=== PATIENT | female | born 1975 | race Caucasian/White ===

== ENCOUNTER 2022-10-16 09:52 | Observation (INO) | payer OTHER, SELFPAY ==
[2022-10-16 09:54] VITALS: BP 157/89; PULSE 73; RESP 17; TEMP 36.3; O2SAT 100; BMI 37.5
--- NOTE | 2022-10-16 10:11 | CT_ITS ---
STUDY: CTA HEAD AND NECK WITH CONTRAST REASON FOR EXAM: Female, 46 years old. Neuro deficit, acute, stroke suspected RADIATION DOSAGE (If Supplied By Facility): CTDIvol = ( 21.29 ) mGy, DLP = ( 649.10 ) mGycm TECHNIQUE: CT angiography was performed with a multi-detector CT scanner. Data acquisition was obtained from the skull base through the vertex following intravenous administration of IV 100mL Isovue-370. MIP images were reconstructed from the axial data set. Post-processing of the angiographic images was performed, with multiplanar reformation and 3D reconstruction. Individualized dose optimization techniques were used for this CT. COMPARISON: No relevant priors. FINDINGS: Normal bilateral petrous carotid arteries. Normal right cavernous carotid artery with a normal supraclinoid bifurcation. Normal left cavernous carotid artery with a normal supraclinoid bifurcation. Normal right A1 segment of the anterior cerebral artery. Normal left A1 segment of the anterior cerebral artery. Normal intact anterior communicating artery (ACOM). Normal bilateral A2 segments of the anterior cerebral arteries. Normal right M1 and M2 segments of the middle cerebral arteries, with a normal M1 bifurcation. Normal left M1 and M2 segments of the middle cerebral arteries, with a normal M1 bifurcation. There is an early anterior temporal branch of the left middle cerebral artery in the left mid M1 segment forming a pseudo bifurcation. This is a developmental variation of normal. There is no thromboembolic occlusion of the left anterior temporal branch of the left middle cerebral artery. origin of the right posterior cerebral artery off the right internal carotid artery rather than a widely patent right posterior communicating artery (PCOM). This explains the development absent right P1 segment. No visible left posterior communicating artery (PCOM). Normal bilateral vertebral arteries. Normal basilar artery with a normal basilar bifurcation. The visualized bilateral superior cerebellar (SCA) arteries are normal. Developmentally absent right P1 segment. Normal left P1 segment. Normal bilateral P2 and visualized P3 segments of the posterior cerebral arteries. There is no demonstrated aneurysm of the [place]. There is no demonstrated abnormality of the visualized brain. AORTIC ARCH: Normal visualized aortic arch. Normal origins of the brachiocephalic, left common carotid, and left subclavian arteries. RIGHT CAROTID ARTERIES: Normal right common carotid artery (CCA). Normal right carotid bulb. Normal origin of the right internal carotid (ICA) artery without a hemodynamically significant stenosis. Normal visualized cervical portion of the right internal carotid artery. Normal origin of the right external carotid artery (ECA). LEFT CAROTID ARTERIES: Normal left common carotid artery (CCA). Normal left carotid bulb. Normal origin of the left internal carotid (ICA) artery without a hemodynamically significant stenosis. Normal visualized cervical portion of the left internal carotid artery. Normal origin of the left external carotid artery (ECA). VERTEBRAL ARTERIES: Normal bilateral vertebral arteries. CT/STROKE CTA Head AND Neck W/Con IMPRESSION: Normal CTA Head and neck with contrast. N.B. : The above Results were Read Back by Gino Curry MD to Kwasi Machuca MD, and understanding confirmed on 10/16/2022 11:50:50 (ET). Electronically Signed: iGno Curry MD at 11:57 EST ,
--- NOTE | 2022-10-16 10:11 | EKG12_ITS ---
Test Reason : NUMBNESS/TINGLING Blood Pressure : / mmHG Vent. Rate : 070 BPM Atrial Rate : 070 BPM P-R Int : 162 ms QRS Dur : 080 ms QT Int : 382 ms P-R-T Axes : 011 -14 005 degrees QTc Int : 412 ms Normal sinus rhythm Inferior infarct , age undetermined , cannot be excluded Abnormal ECG Confirmed by LIZ CHAMBERS, GLENN ([id number]), copy editor KAVITHA GREEN ([id number]) on 10/18/2022 1:11:10 PM Referred By: Confirmed By:GLENN HILL MD
--- NOTE | 2022-10-16 10:11 | CT_ITS ---
EXAM: CT HEAD WITHOUT INTRAVENOUS CONTRAST CLINICAL INDICATION: Neuro deficit, acute, stroke suspected TECHNIQUE: Multiple axial images were obtained of the head without intravenous contrast. This CT exam was performed using one or more of the following dose reduction techniques: automated exposure control, adjustment of the mA and/or kV according to patient size, and/or use of iterative reconstruction technique. This report was created using [employer] report generation technology. COMPARISON: None. FINDINGS: BRAIN AND EXTRA-AXIAL SPACES: Unremarkable. No intra- or extra-axial hemorrhage. No evidence of acute infarct. No intracranial mass or mass effect. There is preservation of the mauricio/white matter interface. Posterior fossa structures are unremarkable. Ventricles are appropriate for age. No hydrocephalus. Basal cisterns are patent. BONES/JOINTS: Unremarkable. No discrete lytic or blastic abnormalities. SINUSES: Unremarkable as visualized. Clear. MASTOID AIR CELLS: Unremarkable. Clear. ORBITS: Visualized globes, extraocular muscles, optic nerves and retrobulbar fat appear unremarkable. CT/STROKE Brain/Head without Cont IMPRESSION: 1. Negative head/brain CT without intravenous contrast at this time. 2. Total ASPECTS score: 10/10. N.B. : The above Results were Read Back by Gino Curry MD to Kwasi Machuca MD, and understanding confirmed on 10/16/2022 11:52:48 (ET). Electronically Signed: Gino Curry MD at 11:43 EST ,
--- NOTE | 2022-10-16 10:12 | EX.ED.DYSGE1 ---
HPI History of Present Illness Chief Complaint: Numb/Ting Narrative Narrative: 46-year-old female presenting with right-sided face numbness and tingling. Patient states she noticed this on [place], 2 days ago. She feels like it is progressively getting worse and is down to her neck. She has occasional numbness and tingling in her right arm. She denies weakness. Denies dizziness or vertigo. Denies speech or vision changes. Denies chest pain or shortness of breath. Prior similar symptoms: No Recent Illness/Hospitalization: No PFSH PFS Medical History (Updated 10/16/22 @ 12:[address] Brigette Villalpando MD) GERD (gastroesophageal reflux disease) Home Medications NK 10/16/22 [History Last Taken Unknown] Allergy/AdvReac Type Severity Reaction Status Date / Time amoxicillin Allergy Hives Verified 10/16/22 09:53 Social History Smoking Status: Never smoker ROS ROS ED Constitutional Constitutional ED: Denies fever(s) Eyes Eyes: Denies change in vision ENT ENT ED: Denies rhinorrhea or sore throat Cardiovascular Cardiovascular: Denies chest pain or palpitations Respiratory/Chest Respiratory/Chest: Denies cough or dyspnea Gastrointestinal Gastrointestinal: Denies abdominal pain, diarrhea, nausea or vomiting Genitourinary Genitourinary ED: Denies dysuria Musculoskeletal Musculoskeletal: Denies myalgias Integumentary Denies rash Neurologic Neurologic: Reports paresthesias; Denies headache(s) or weakness Psychiatric Psychiatric: Denies suicidal thoughts EXAM Physical Exam Const Vital Signs: 10/16/22 09:54 10/16/22 11:10 Temperature 97.3 F L Temperature Source Temporal Pulse Rate 73 Respiratory Rate 17 Blood Pressure 157/89 H Blood Pressure Mean 111 Pulse Ox 100 Oxygen Delivery Method Room Air Room Air Positive well nourished and well developed General Appearance ED: well developed HEENT Reports normocephalic and head/scalp atraumatic Eyes PERRL and EOMs intact bilaterally Neck supple General: Negative for tenderness Chest Wall inspection of chest normal Resp normal respiratory effort and clear to auscultation bilaterally Cardio regular rate and regular rhythm GI non-tender and non-distended Palpation: soft; Negative for guarding or rebound tenderness present no CVA tenderness Extremity normal to inspection Neuro oriented x3 Neuro Narrative: decreased sensation right face, NIH 1 Sensorium / Orientation: alert Motor Exam: strength 5/5 throughout Psych mental status grossly normal MDM MDM MDM Narrative Medical decision making narrative: EKG is sinus rhythm rate of 70 with no acute ischemic changes. Chest x-ray read by myself and radiology shows no acute process. CBC, chemistries are unremarkable. INR 1.0. Troponin is negative. CT head, CTA head and neck were unremarkable. Discussed with hospitalist for observation. Lab Data Attestation: I reviewed the patient's lab results. Labs: Laboratory Results - last 24 hr 10/16/22 10/16/22 10/16/22 10:40 10:40 10:40 WBC 4.0 L RBC 3.98 L Hgb 11.8 L Hct 35.6 L MCV 89.4 MCH 29.6 MCHC 33.1 RDW Std Deviation 41.7 RDW Coeff of Liu 12.7 Plt Count 284 MPV 9.8 Immature Gran % (Auto) 0.300 Neut % (Auto) 45.4 L Lymph % (Auto) 37.9 Burnett % (Auto) 13.1 H Eos % (Auto) 2.3 Baso % (Auto) 1.0 Absolute Neuts (auto) 1.8 L Absolute Lymphs (auto) 1.50 Nucleated RBC % 0 PT 13.0 INR 1.0 APTT 27.5 Sodium 139 Potassium 3.5 Chloride 107 Carbon Dioxide 26.0 Anion Gap 6 BUN 12 Creatinine 0.81 Estim Creat Clear Calc 64.09 Est GFR (MDRD) Af Amer 97 Est GFR (MDRD) Non-Af 80 BUN/Creatinine Ratio 14.8 Glucose 116 H Calcium 8.6 Troponin I High Sens < 3 L Radiography Chest X-Ray - ED: 1 View, Read by ED Physician and Read by Radiologist Diagnostic Testing: Clinical Impression(s) from Imaging Studies Head/Neck CTA 10/16/22 10:11 IMPRESSION: Normal CTA Head and neck with contrast. N.B. : The above Results were Read Back by Gino Curry MD to Kwasi Machuca MD, and understanding confirmed on 10/16/2022 11:50:50 (ET). Electronically Signed: Gino Curry MD at 11:57 EST , ADDENDUM: 10/16/22 1204 IMPRESSION: Normal CTA Head and neck with contrast. N.B. : The above Results were Read Back by Gino Curry MD to Kwasi Machuca MD, and understanding confirmed on 10/16/2022 11:50:50 (ET). Electronically Signed: Gino Curry MD at 11:57 EST , Chest X-Ray 10/16/22 10:45 IMPRESSION: Normal chest radiograph. Electronically Signed: Gino Curry MD at 11:18 EST , EKG Initial EKG: Attestation: I personally reviewed and interpreted this EKG as follows: Interpretation: Sinus Rhythm and No Acute Injury Pattern Discharge Plan Triage Chief Complaint: Numb/Ting ED Provider: Brigette Villalpando Dx/Rx/DC Orders Clinical Impression: Facial paresthesia Prescriptions: No Action NK Primary Care Provider: David Butler Referrals: David Butler MD [Primary Care Provider] - Disposition Disposition: Acute Care [facility]
--- NOTE | 2022-10-16 10:16 | NURSING ---
NO OLD EKGS
--- NOTE | 2022-10-16 10:45 | RAD_ITS ---
EXAM: XR CHEST, 1 VIEW CLINICAL INDICATION: Neuro deficit, acute, stroke suspected TECHNIQUE: Frontal view of the chest. This report was created using [employer] report generation technology. COMPARISON: None. FINDINGS: LUNGS AND PLEURAL SPACES: The lungs are clear. No pneumothorax. No effusion. HEART: Unremarkable. Cardiac silhouette not enlarged. MEDIASTINUM: Central airways and mediastinal contour are unremarkable. BONES/JOINTS: Unremarkable. SOFT TISSUES: Unremarkable. RAD/Chest 1 View IMPRESSION: Normal chest radiograph. Electronically Signed: Gino Curry MD at 11:18 EST ,
[2022-10-16 10:54] LABS: Absolute Neutrophil Count 1.8 X10^3/uL (2.0-7.7); Basophil# 0.04 X10^3/uL; Eosinophil# 0.09 X10^3/uL; Eosinophils% 2.3 % (0-5); Hematocrit 35.6 % (37-47); Hemoglobin 11.8 g/dL (12.0-15.0); Lymphocyte % 37.9 % (19-41); Mean Corp Hgb Conc 33.1 g/dL (32-36); Mean Corpuscular Hgb 29.6 pg (27.0-32.0); Mean Corpuscular Volume 89.4 fL (81-99); Mean Platelet Vol. 9.8 fl (6.2-12.0); Monocyte# 0.52 X10^3/uL; Monocyte% 13.1 % (0-10); NRBC Flagged by Analyzer 0 % (0-5); Neutrophil % 45.4 % (47-70); Platelet Count 284 K/mm3 (150-450); RBC Distribution Width CV 12.7 % (11.6-14.6); RBC Distribution Width SD 41.7 fl (35.1-43.9); Red Blood Count 3.98 M/mm3 (4.2-5.4)
[2022-10-16 11:01] LABS: Partial Thromboplast Time 27.5 Seconds (24.1-36.2)
[2022-10-16 11:03] LABS: Anion Gap 6 (5-15); BUN 12 mg/dL (7-18); BUN/Creat Ratio 14.8 RATIO (10-20); Calcium,Total 8.6 mg/dL (8.5-10.1); Chloride 107 mmol/L (98-107); Creatinine, Serum 0.81 mg/dL (0.55-1.02); EST Glomerular Filtration Rate 80 mL/min (>60); Est Glom Filt Rate - Afr Amer 97 mL/min (>60); Estimated Creatinine Clearance 64.09 ml/min; Glucose 116 mg/dL (74-106); Potassium 3.5 mmol/L (3.5-5.1); Sodium Level 139 mmol/L (136-145); Troponin-I HS < 3 pg/mL (3.0-54.0)
--- NOTE | 2022-10-16 12:08 | NURSING ---
DR KYREE DON
[2022-10-16 12:18] VITALS: BP 142/83; PULSE 63; RESP 20; TEMP 36.7; O2SAT 100
[2022-10-16 13:00] VITALS: BP 137/74; PULSE 65; RESP 18; TEMP 36.8; O2SAT 99
[2022-10-16 13:01] VITALS: BMI 36.1
--- NOTE | 2022-10-16 14:16 | EX.EMERGENCY ---
EMERGENCY DOCUMENTATION INITIATED: Date: 10/12/22 Time: 0900 Emergency Documentation started at 1300 10/16/22
--- NOTE | 2022-10-16 15:05 | HP.PCM.HOS_ITS ---
[facility] - General General Date of Admission: 10/16/22 Date of Service: 10/16/22 Chief Complaint: Tingling and numbness of the right facial and scalp area extending into the right neck area [facility] Narrative RYAN GARCÍA, is a 46 F who presents to the emergency room with complaints of a tingling sensation along with numbness of the skin over the right facial area, right temporal occipital scalp area, and radiation into the right lateral neck area. The symptoms over the right facial area and right temporal occipital area started 2 days ago, the symptoms involving her right lateral neck area started yesterday. She denies any right-sided weakness, she denies any right- sided numbness or tingling, she denies any visual or speech disturbances. Patient has no chronic medical problems. Work-up in the emergency room included a CT of the head and neck and a CT of the brain which was unremarkable and showed no acute pathology. Chest x-ray was unremarkable, white blood cell count was low at 4, hemoglobin was 11.8, and patient's chemistry panel was unremarkable. Patient's EKG showed normal sinus rhythm at 70 with no acute ischemic changes. Patient's NIH score was 1. According to the emergency room physician, patient appeared concerned because her sister has a history of MS. Patient will be placed in observation status on [facility], if her symptoms progress and NIH scores will be monitored, I will order a MRI of the brain with and without contrast tomorrow, I do not feel the patient has had an acute CVA. [facility] Medical History (Updated 10/16/22 @ 13:14 by Rachel Benitez) Former smoker GERD (gastroesophageal reflux disease) Vision loss of left eye Vision loss of right eye Home Medications NK 10/16/22 [History Last Taken Unknown] Allergy/AdvReac Type Severity Reaction Status Date / Time amoxicillin Allergy Hives Verified 10/16/22 09:53 Surgical History (Updated 10/16/22 @ 13:14 by Rachel Benitez) History of cholecystectomy Social History Smoking Status: Former smoker ROS Constitutional Constitutional: Denies anorexia, change in weight, chills, fatigue, fever(s), night sweats or weakness Eyes Eyes: Denies blurry vision, change in eye color, change in vision, discharge from eye(s) or eye pain Cardiovascular Cardiovascular: Denies chest pain, claudication, dyspnea on exertion, edema, lightheadedness or palpitations Respiratory/Chest Respiratory/Chest: Denies cough, hemoptysis, shortness of breath at rest or shortness of breath with exertion Gastrointestinal Gastrointestinal: Denies abdominal pain, constipation, diarrhea, hematemesis, hematochezia, melena, nausea or vomiting Genitourinary Genitourinary: Denies dysuria, hematuria, urinary frequency, urinary hesitancy, urinary incontinence or urinary urgency Musculoskeletal Musculoskeletal: Denies back pain, joint pain, joint stiffness, joint swelling, myalgias or neck pain Neurologic Neurologic: Reports numbness, paresthesias, tingling and other Details: Patient complains of paresthesias over her right facial area, right occipital/temporal scalp area, and right lateral neck area ; Denies abnormal gait, abnormal speech, dizziness, focal weakness, headache(s), loss of vision, other visual disturbances, seizure-like activity, seizures, syncope or tremor(s) Psychiatric Psychiatric: Denies anxiety, cognitive impairment, depression, irritability, mood swings or suicidal ideation Endocrine Endocrinology: Denies change in body appearance, cold intolerance, excessive sweating, heat intolerance, polydipsia or polyuria Hematologic/Lymphatic Hematologic/Lymphatic: Denies none, anemia, easy bleeding, easy bruising or lymphadenopathy Allergic/Immunologic Allergic/Immunologic: Denies rhinitis, urticaria, eczemia or asthma Vital Signs Vital Signs Vital Signs: 10/16/22 09:54 10/16/22 11:10 10/16/22 12:18 Temperature 97.3 F L Temperature Source Temporal Pulse Rate 73 63 Respiratory Rate 17 20 H Blood Pressure 157/89 H 142/83 H Blood Pressure Mean 111 102 Blood Pressure Source Blood Pressure Position Blood Pressure Location Pulse Ox 100 100 Oxygen Delivery Method Room Air Room Air Room Air 10/16/22 12:18 10/16/22 13:00 Temperature 98.0 F 98.2 F Temperature Source Oral Oral Pulse Rate 63 65 Respiratory Rate 20 H 18 Blood Pressure 142/83 H 137/74 H Blood Pressure Mean 102 95 Blood Pressure Source Monitor Blood Pressure Position Semi-Fowlers Blood Pressure Location Left Arm Pulse Ox 100 99 Oxygen Delivery Method Room Air Room Air Weight Weight: 89.7 kg Body Mass Index (BMI) 36.1 Physical Exam Const alert, oriented x3, no apparent distress, average body habitus and healthy appearing General Appearance: cooperative, well kempt and well developed Orientation / Consciousness: awake, oriented to person, oriented to place and oriented to time HEENT normocephalic, head/scalp atraumatic, hearing grossly normal bilaterally and moist oral mucous membranes Eyes PERRL, EOMs intact bilaterally and conjunctivae normal Neck supple, no JVD, thyroid normal and no carotid bruits General: trachea midline Resp normal respiratory effort, no retractions, no use of accessory muscles and clear to auscultation bilaterally Auscultation: Negative for rales, rhonchi or wheezes Cardio regular rate, regular rhythm, S1 normal heart sound, S2 normal heart sound, no murmurs, no rub and no gallops GI normal to inspection, nondistended, normoactive bowel sounds, soft to palpation, non-tender and non-distended Extremity no clubbing, cyanosis or edema Skin no rashes or lesions noted General Skin Exam: no breakdown Neuro oriented x3, CN's II-XII intact bilaterally, moves all extremities and no focal motor deficits Neuro Narrative: Patient states that she has decreased sensation to light touch over her right facial area, right occipital scalp area, right temporal scalp area, and right lateral neck area as compared with the same areas on the left. Sensorium / Orientation: awake, alert, oriented to person, oriented to place and oriented to time Speech: speech normal Motor Exam: strength 5/5 throughout Psych affect normal Results Lab / Micro Data Result Diagrams: 10/16/22 10:40 10/16/22 10:40 Labs: Laboratory Results - last 24 hr 10/16/22 10:40: WBC 4.0 L, RBC 3.98 L, Hgb 11.8 L, Hct 35.6 L, MCV 89.4, MCH 29.6, MCHC 33.1, RDW Std Deviation 41.7, RDW Coeff of Liu 12.7, Plt Count 284, MPV 9.8, Immature Gran % (Auto) 0.300, Neut % (Auto) 45.4 L, Lymph % (Auto) 37.9, Crockett % (Auto) 13.1 H, Eos % (Auto) 2.3, Baso % (Auto) 1.0, Absolute Neuts (auto) 1.8 L, Absolute Lymphs (auto) 1.50, Nucleated RBC % 0 10/16/22 10:40: PT 13.0, INR 1.0, APTT 27.5 10/16/22 10:40: Sodium 139, Potassium 3.5, Chloride 107, Carbon Dioxide 26.0, Anion Gap 6, BUN 12, Creatinine 0.81, Estim Creat Clear Calc 64.09, Est GFR (MDRD) Af Amer 97, Est GFR (MDRD) Non-Af 80, BUN/Creatinine Ratio 14.8, Glucose 116 H, Calcium 8.6, Troponin I High Sens < 3 L Radiology Impression Head/Neck CTA 10/16/22 10:11 IMPRESSION: Normal CTA Head and neck with contrast. N.B. : The above Results were Read Back by Gino Curry MD to Kwasi Machuca MD, and understanding confirmed on 10/16/2022 11:50:50 (ET). Electronically Signed: Gino Curry MD at 11:57 EST , ADDENDUM: 10/16/22 1204 IMPRESSION: Normal CTA Head and neck with contrast. N.B. : The above Results were Read Back by Gino Curry MD to Kwasi Machuca MD, and understanding confirmed on 10/16/2022 11:50:50 (ET). Electronically Signed: Gino Curry MD at 11:57 EST , Chest X-Ray 10/16/22 10:45 IMPRESSION: Normal chest radiograph. Electronically Signed: Gino Curry MD at 11:18 EST , Assessment & Plan Assessment/Plan (1) Facial paresthesia: PLAN: Plan 1. Right facial/scalp/neck paresthesias-exact etiology unclear at this point, again I do not feel the patient has had an acute cerebrovascular event, patient will be placed in observation status on [facility] 2, patient will be monitored and an MRI of the brain with and without contrast tomorrow will be performed to rule out any pathology. Charges/Coding Visit Charges Inpatient E&M: 17229 Init Hosp L2
[2022-10-16 17:42] VITALS: BP 137/76; PULSE 77; RESP 18; TEMP 37.2; O2SAT 95
[2022-10-16 20:05] VITALS: BP 142/83; PULSE 75; RESP 18; TEMP 36.8; O2SAT 98
[2022-10-16] MEDS: Acetaminophen 325 MG Tablet 650 MG PO (20:17)
[2022-10-17 02:10] VITALS: BP 121/81; PULSE 88; RESP 18; TEMP 36.9; O2SAT 98
[2022-10-17 08:00] VITALS: BP 127/83; PULSE 74; RESP 18; TEMP 36.9; O2SAT 100
--- NOTE | 2022-10-17 09:00 | MRI_ITS ---
HISTORY: arm and facial paresthesias, R/O MS. TECHNIQUE: Multiplanar and multisequence MR images of the brain were obtained before and after the intravenous administration of 18 mL Clariscan. 358 images. COMPARISON: CT prior day. FINDINGS: BRAIN PARENCHYMA: Small focus of increased T2 FLAIR signal at the junction of the right dorsolateral medulla and cervical cord. Slightly increased signal on diffusion-weighted images in the same region without corresponding drop out on ADC map. Mild linear enhancement associated with the lesion. No other enhancing lesion in the brain parenchyma. No acute intracranial hemorrhage identified. CSF SPACES: Cerebral ventricles, cortical sulci, and other extra-axial CSF spaces within normal limits in size for age. No significant midline shift or other mass effect.No extra-axial fluid collection. VASCULAR SYSTEM: Major intracranial flow voids are maintained. PARANASAL SINUSES AND MASTOID AIR CELLS: No significant air fluid levels. ORBITS: Symmetric contents. Symmetric signal in the optic nerves without abnormal enhancement. MRI/Brain W/WO Contrast IMPRESSION: Small zone of increased signal with mild linear enhancement in the right dorsolateral medulla at the cervicomedullary junction, which may represent subacute infarction or small focus of active demyelinating disease. Recommend follow-up to exclude other etiologies. Electronically Signed: Diamond Pavon MD at 11:27 EST ,
--- NOTE | 2022-10-17 09:38 | NURSING ---
Transport came to get pt. Brought down to MRI via at this time.
--- NOTE | 2022-10-17 11:31 | ECHOD_ITS ---
Reason For Study: TIA/CVA Procedure This was a 2D Doppler, Color Flow transthoracic echocardiogram. The study was technically difficult. RESPIRATORY INTERFERENCE. Exam performed portable in patient room. Left Ventricle Normal LV size. Left ventricular systolic function is normal. The estimated ejection fraction is 65 %. No evidence for diastolic dysfunction. No regional wall motion abnormalities noted. Right Ventricle Normal RV size. Normal systolic function. Atria Normal left atrium. Normal right atrium. No doppler evidence for ASD. Bubble contrast study negative for right to left interatrial shunt. Mitral Valve There is no mitral annular calcification. Normal mitral valve. Trivial mitral valve insufficiency. Tricuspid Valve Normal tricuspid valve. Aortic Valve Trisinus/trileaflet aortic valve. Normal aortic valve. Pulmonic Valve The pulmonic valve is not well visualized. Great Vessels Normal sized aortic root. Pericardium/Pleural No pericardial effusion. Medication Performed a rapid injection of agitated mix of 9 cc saline and 1cc air to assess for atrial septal defect. MMode/2D Measurements & Calculations LVIDd: 3.2 cm IVSd: 0.92 cm Ao root diam: 3.3 cm LVIDs: 2.3 cm LVPWd: 0.94 cm RVDd: 3.1 cm FS: 29.2 % LAV(MOD-bp): 34.2 ml LVAd ap4: 24.2 cm2 LVAd ap2: 22.2 cm2 LAV(MOD-bp) Indexed: 18.0 ml/m2 LVLd ap4: 7.7 cm LVLd ap2: 7.7 cm LAV(MOD-sp2): 24.4 ml EDV(MOD-sp4): 63.1 ml EDV(MOD-sp2): 55.6 ml LAV(MOD-sp4): 40.3 ml EDV(sp4-el): 64.7 ml EDV(sp2-el): 54.3 ml LVAs ap4: 12.3 cm2 LVAs ap2: 12.0 cm2 LVLs ap4: 6.4 cm LVLs ap2: 5.8 cm ESV(MOD-sp4): 22.4 ml ESV(MOD-sp2): 22.0 ml ESV(sp4-el): 20.0 ml ESV(sp2-el): 21.1 ml EF(MOD-sp4): 64.6 % EF(MOD-sp2): 60.4 % EF(sp4-el): 69.1 % SV(MOD-sp4): 40.8 ml SV(MOD-sp2): 33.6 ml SV(sp4-el): 44.7 ml LA A4 area: 16.2 cm2 LA dimension(2D): 3.4 cm RA A4 area: 9.7 cm2 Time Measurements MV dec time: 0.25 sec Doppler Measurements & Calculations MV E max dominick: 57.0 cm/sec Lat Peak E' Dominick: 12.0 cm/sec Med Peak E' Dominick: 8.0 cm/sec MV A max dominick: 65.6 cm/sec E/E' lat: 4.8 E/E' med: 7.1 MV E/A: 0.87 Ao V2 max: 144.5 cm/sec LV V1 max: 107.6 cm/sec MV dec slope: 235.0 cm/sec2 Ao max P.4 mmHg LV V1 max P.6 mmHg Ao V2 mean: 98.6 cm/sec LV V1 mean P.3 mmHg Ao mean P.4 mmHg LV V1 mean: 69.8 cm/sec Ao V2 VTI: 26.1 cm LV V1 VTI: 21.7 cm AV (velocity ratio): 0.83 PA V2 max: 86.9 cm/sec ECHO/Echo Complete Interpretation Summary The study was technically difficult. Left ventricular systolic function is normal. The estimated ejection fraction is 65 %. Trivial mitral valve insufficiency. No evidence for diastolic dysfunction. Bubble contrast study negative for right to left interatrial shunt. Ordering Physician: Nelson Painting Referring Physician: David Butler Performed By: Jaky Rucker, EDENILSON, RVT
--- NOTE | 2022-10-17 11:32 | TELEMED_ITS ---
[facility] has confirmed receipt of a request for visit. This document confirms receipt of the order initiating the consult. To find the results of the consultation, please view the patient's reports for the scanned Telemed Consult.
[2022-10-17] MEDS: Clopidogrel Bisulfate 75 MG Tablet PO (12:50)
[2022-10-17] MEDS: Aspirin E.C. 81 MG Tablet PO (12:50)
[2022-10-17 13:35] LABS: Cholesterol 209 mg/dL (200); High Density Lipoprotein 52 mg/dL; Triglycerides 193 mg/dL; Very Low Density Lipoprotein 39 mg/dL (5-40)
[2022-10-17 14:00] VITALS: BP 125/80; PULSE 84; RESP 16; TEMP 36.8; O2SAT 99
--- NOTE | 2022-10-17 17:47 | PN.HOSP_ITS ---
Subjective Subjective Patient was seen and examined today, she had a small abnormality on her MRI in the medulla, it is unclear whether this is a subacute stroke or demyelinating disease. I asked for neurological consultation, at this time, they have not seen the patient. I also ordered an echocardiogram and I placed the patient on a baby aspirin a day, 1 Plavix a day, and Lipitor. I got a lipid profile on the patient, her LDL cholesterol is 118. Objective Data Objective Data Vital Signs: Vital Signs Temp Pulse Resp BP Pulse Ox O2 Del Method 98.2 F 84 16 125/80 H 99 Room Air 10/17/22 14:00 10/17/22 14:00 10/17/22 14:00 10/17/22 14:00 10/17/22 14:00 10/17/22 14:00 Oxygen Delivery Method Room Air Weight: 89.7 kg Body Mass Index (BMI) 36.1 Intake & Output: Intake and Output for Last 24 Hours 10/15/22 10/16/22 10/17/22 23:59 23:59 23:59 Intake Total 1100 / 1100 Balance 1100 / 1100 Lab / Micro Data Result Diagrams: 10/16/22 10:40 10/16/22 10:40 Labs: Laboratory Results - last 24 hr 10/16/22 10:40: Triglycerides 193, Cholesterol 209 H, LDL Cholesterol 118, VLDL Cholesterol 39, HDL Cholesterol 52 Radiography Diagnostic Testing: Radiology Impression Brain MRI 10/17/22 09:00 IMPRESSION: Small zone of increased signal with mild linear enhancement in the right dorsolateral medulla at the cervicomedullary junction, which may represent subacute infarction or small focus of active demyelinating disease. Recommend follow-up to exclude other etiologies. Electronically Signed: Diamond Pavon MD at 11:27 EST , Physical Exam Narrative alert, oriented x3, no apparent distress, average body habitus and healthy appearing General Appearance: cooperative, well kempt and well developed Orientation / Consciousness: awake, oriented to person, oriented to place and oriented to time HEENT normocephalic, head/scalp atraumatic, hearing grossly normal bilaterally and moist oral mucous membranes Eyes PERRL, EOMs intact bilaterally and conjunctivae normal Neck supple, no JVD, thyroid normal and no carotid bruits General: trachea midline Resp normal respiratory effort, no retractions, no use of accessory muscles and clear to auscultation bilaterally Auscultation: Negative for rales, rhonchi or wheezes Cardio regular rate, regular rhythm, S1 normal heart sound, S2 normal heart sound, no murmurs, no rub and no gallops GI normal to inspection, nondistended, normoactive bowel sounds, soft to palpation, non-tender and non-distended Extremity no clubbing, cyanosis or edema Skin no rashes or lesions noted General Skin Exam: no breakdown Neuro oriented x3, CN's II-XII intact bilaterally, moves all extremities and no focal motor deficits Neuro Narrative: Patient states that she has decreased sensation to light touch over her right facial area, right occipital scalp area, right temporal scalp area, and right lateral neck area as compared with the same areas on the left. Sensorium / Orientation: awake, alert, oriented to person, oriented to place and oriented to time Speech: speech normal Motor Exam: strength 5/5 throughout Psych affect normal Assessment & Plan Assessment/Plan (1) Facial paresthesia: PLAN: Plan 1. 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 I have asked teleneurology to see the patient, she will get an echocardiogram performed #2 facial paresthesias secondary to #1-I had Occupational Therapy see the patient today. Patient will need to remain in the hospital until her studies are completed. Total clinical time spent by myself addressing the patient's medical issues, reviewing all her data, and collaborating with patient's care team: 25 minutes Charges/Coding Visit Charges Inpatient E&M: 16506 [facility] Hosp L1
--- NOTE | 2022-10-17 18:04 | NURSING ---
Phoned [facility] to inquire about consult. Awaiting a
[2022-10-17 20:00] VITALS: BP 122/82; PULSE 82; RESP 18; TEMP 36.8; O2SAT 98
[2022-10-17] MEDS: Atorvastatin Calcium 40 MG Tablet PO (22:30)
[2022-10-18 02:04] VITALS: BP 116/80; PULSE 74; RESP 16; TEMP 36.7; O2SAT 98
[2022-10-18 08:00] VITALS: BP 136/71; PULSE 83; RESP 17; TEMP 36.9; O2SAT 97
--- NOTE | 2022-10-18 14:04 | NURSING ---
This RN in the room while Neurology was on the Computer talking with her.
[2022-10-18 15:02] VITALS: BP 149/100; PULSE 69; RESP 16; TEMP 36.7; O2SAT 99
[2022-10-18 15:18] LABS: Hemoglobin A1c 5.4 % (3.8-5.6)
--- NOTE | 2022-10-18 15:53 | DCINST_ITS ---
Discharge Instructions Diet Discharge Diet: No restrictions Activity Discharge Activity: Return to Normal Activity Return to work on:: 10/24/22 Weight Bearing Status: Full weight bearing Follow Up Care Test Results: Test results from this visit will be discussed in further detail at your follow- up appointment, if applicable. Discharge Plan Admission Admit Date/Time: 10/16/22 12:49 Primary Reason for Your Visit: cerebrovascular event Attending Provider: Nelson Painting Primary Care Provider: David Butler Discharge Orders/Prescriptions Prescriptions: New atorvastatin 40 mg Tablet 40 mg PO QHS Qty: 30 0RF aspirin 81 mg tablet,delayed release (DR/EC) 81 mg PO DAILY Qty: 30 0RF clopidogrel [Plavix] 75 mg tablet 75 mg PO DAILY Qty: 30 0RF Referrals / Follow Up: David Butler MD [Primary Care Provider] - See Referral Note (as scheduled) Disposition Disposition (needs filled in before D/C Order can be placed): Home, Self Care
--- NOTE | 2022-10-18 16:02 | DS.PCM_ITS ---
Providers Date of Admission: 10/16/22 Date of Discharge: 10/18/22 Primary Care Physician: Dr. David Butler MD Reason For Visit: PARATHESIAS OF FACE AND ARM Diagnosis Discharge Diagnosis (1) Facial paresthesia: Status: Acute Code(s): R20.2 - Paresthesia of skin Plan 1. 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 I have asked telene urology to see the patient, she will get an echocardiogram performed #2 facial paresthesias secondary to #1-I had Occupational Therapy see the patient today. Patient will need to remain in the hospital until her studies are completed. Total clinical time spent by myself addressing the patient's medical issues, reviewing all her data, and collaborating with patient's care team: 25 minutes Medications at Discharge Home Medications aspirin 81 mg tablet,delayed release 81 mg PO DAILY #30 tabs 10/18/22 atorvastatin 40 mg tablet 40 mg PO QHS #30 tabs 10/18/22 clopidogrel 75 mg tablet (Plavix) 75 mg PO DAILY #30 tabs 10/18/22 Hospital Course Operations None Procedures 2-D Echocardiogram Summary of Care Provided Minutes Spent on Discharge: 31 Hospital Course: This 46-year-old white female was seen in the emergency room at [facility] with chief complaint of numbness over the right side of her face and right scalp area which was present for approximately 48 hours, she also complained of some numbness going into her right neck area x24 hours. Work-up in the emergency room included a CT which showed no abnormality, she was admitted to [facility], she was seen by PT and OT and had an MRI performed which showed no abnormality in her right medulla oblongata which could be a stroke or neurodegenerative disease. She was seen in consultation by teleneurology and had an echocardiogram performed, echocardiogram was unremarkable, teleneurology stated that she had to be seen as an outpatient by a neurologist to rule out any neurodegenerative disease but they would recommend her to be treated like a stroke in the meantime-she was discharged on aspirin, Plavix, and a statin. On 10/18/2022, patient was seen and examined: On examination she appeared in good health and spirits, she does not appear to be in any distress. Vital signs as documented. Skin warm and dry and without overt rashes. Neck without JVD, thyroid appears normal, trachea is midline, neck is supple. Lungs clear, normal air movement was noted. Heart exam notable for regular rhythm, normal sounds and absence of murmurs, rubs or gallops. Abdomen unremarkable and without evidence of organomegaly, masses, or abdominal aortic enlargement, bowel sounds are present in all 4 quadrants, no abdominal tenderness was noted. Extremities nonedematous, no cyanosis was noted, no clubbing was noted. Neuro: Cranial nerves II through XII are grossly intact, no focal motor deficits were noted, sensation to light touch and pinprick is intact, motor exam 5/5 throughout. Psych: Patient is alert and oriented x3, she does not appear anxious or depressed, she does not appear agitated. Patient appears stable for discharge on 10/18/2022, I discussed her medical plan with her who was present at the time of discharge from the hospital. Weight / BMI Weight Weight: 89.7 kg Body Mass Index (BMI) 36.1 ABG / Lab / Microbiology Data Result Diagrams: 10/16/22 10:40 10/16/22 10:40 Laboratory: Laboratory Results - last 24 hr 10/16/22 10:40: Hemoglobin A1c 5.4 Radiography Diagnostic Testing: Radiology Impression Echocardiogram 10/17/22 11:31 Interpretation Summary The study was technically difficult. Left ventricular systolic function is normal. The estimated ejection fraction is 65 %. Trivial mitral valve insufficiency. No evidence for diastolic dysfunction. Bubble contrast study negative for right to left interatrial shunt. Ordering Physician: Nelson Painting Referring Physician: David Butler Performed By: Jaky Rucker, EDENILSON, RVT D/C Instructions Discharge Diet: No restrictions Return to work on: 10/24/22 Weight Bearing Status: Full weight bearing Meaningful Use Info Meaningful Use Diagnoses (Choose all that apply): Ischemic CVA CVA Therapy Assessed for PT,OT and/or ST?: Yes Ischemic Stroke Antithrombotic order at d/c?: Yes Dx of Atrial fib/flutter?: No Reason anticoagulant not ordered: Treatment not Indicated Statins at discharge?: Yes Primary Dx Acute Ischemic CVA?: Yes IV tPA ordered during stay?: No Reason IV t-PA not ordered: Treatment not Indicated Discharge Plan Admission Admit Date/Time: 10/16/22 12:49 Primary Reason for Your Visit: cerebrovascular event Attending Provider: Nelson Painting Primary Care Provider: David Butler Discharge Orders/Prescriptions Prescriptions: New atorvastatin 40 mg Tablet 40 mg PO QHS Qty: 30 0RF aspirin 81 mg tablet,delayed release (DR/EC) 81 mg PO DAILY Qty: 30 0RF clopidogrel [Plavix] 75 mg tablet 75 mg PO DAILY Qty: 30 0RF Referrals / Follow Up: David Butler MD [Primary Care Provider] - See Referral Note (as scheduled) Disposition Disposition (needs filled in before D/C Order can be placed): Home, Self Care Charges/Coding Visit Charges Inpatient E&M: 06970 Disch Hosp >30min
[2022-10-18 16:03] LABS: Vitamin D,25 Hydroxy 19.7 ng/mL
== END 2022-10-18 17:16 | disposition home or self-care (01) ==
LOC: ED 12:15 → MS2 12:57
PROVIDERS: Admitting Provider Internal Medicine; Emergency Provider Emergency Medicine; PCP Family Medicine; Visit Provider Internal Medicine
DX: R20.2 Paresthesia of skin (principal); Z87.891 Personal history of nicotine dependence; K21.9 Gastro-esophageal reflux disease without esophagitis; R20.0 Anesthesia of skin; Z82.0 Family history of epilepsy and other diseases of the nervous system
CPT/HCPCS: 36415; 70450; 70496; 70498; 70553; 71045; 80048; 80061; 82306; 83036; 84484; 85025; 85610; 85730; 93005; 93306; 97166; 99221; 99284; A9575; Q9967; A4216; G0378